=== PATIENT | female | born 1975 | race African-American/Black ===

== ENCOUNTER 2024-01-15 14:56 | Emergency (ER) | payer MEDICAID, OTHER ==
[~2024-01-15] VITALS: Ht 167.6 cm; Wt 166.3 kg
[~2024-01-15 14:56] MED LIST: BENAZEPRIL HCL 20 MG PO
[2024-01-15] MEDS: HYDROcodone-ACET 10/325MG TAB PO ONE (15:52)
[2024-01-15 16:00] VITALS: BP 194/102; PULSE 98; RESP 18; TEMP 98.1; O2SAT 98
[2024-01-15] MEDS ORDERED: BACL10TA PO (16:25)
[2024-01-15] MEDS ORDERED: IBUP-1456 PO (16:25)
== END 2024-01-15 16:29 | disposition home or self-care (01) ==
LOC: ER 14:56
DX: S76.911A Strain of unspecified muscles, fascia and tendons at thigh level, right thigh, initial encounter (principal); E66.01 Morbid (severe) obesity due to excess calories; E11.9 Type 2 diabetes mellitus without complications; Z68.43 Body mass index [BMI] 50.0-59.9, adult; Z79.1 Long term (current) use of non-steroidal anti-inflammatories (NSAID); W01.0XXA Fall on same level from slipping, tripping and stumbling without subsequent striking against object, initial encounter; Y93.89 Activity, other specified; Y92.89 Other specified places as the place of occurrence of the external cause; Y99.8 Other external cause status

== ENCOUNTER 2025-02-04 17:06 | Emergency (ER) | payer MEDICAID ==
[~2025-02-04] VITALS: Ht 167.6 cm; Wt 175.4 kg
[~2025-02-04 17:06] MED LIST changes: +BACL10TA PO; +IBUP-1456 PO
[2025-02-04] MEDS ORDERED: DICL500C76 PO (17:53)
[2025-02-04] MEDS ORDERED: IBUP-1455 PO (17:53)
[2025-02-04] MEDS ORDERED: ACET500T58 PO (17:53)
[2025-02-04] MEDS ORDERED: CLON0.2T PO (17:53)
--- NOTE | 2025-02-04 17:53 | ED.PDOC ---
History of Present Illness HPI Comments This patient is a pleasant but severely morbidly obese 49-year-old female who arrives the ED today for evaluation of right-sided breasts concern. Patient states she feels like she has a lump underneath her right nipple and areolar region. Patient states the symptoms came on several days ago and has been unre lenting. Patient denies any discharge from the nipple. Patient denies any fever nausea or vomiting. Patient was hypertensive on arrival. Patient states she has been nervous lately for multiple concerns. Chief Complaint: Breast pain Time Seen by MD: 17:16 Primary Care Provider: KENAN Reviewed Notes: Nurses Notes Allergies: Coded Allergies: NO KNOWN ALLERGIES (Unverified , 05/31/11) Home Meds Active Scripts Baclofen (Baclofen) 10 Mg Tab, 10 MG PO BID, #24 TAB Prov:FILOMENA DUPREE 01/15/24 Ibuprofen (Ibuprofen) 800 Mg Tab, 1 TAB PO TID, #30 TAB Prov:FILOMENA DUPREE 01/15/24 Reported Medications [benazepril hcl 20mg] No Conflict Check, PO 06/01/11 Information Source: Patient Mode of Arrival: Ambulatory Severity: Moderate Timing: Days Duration: Since onset Prehospital treatment: None Past Medical History PAST MEDICAL HISTORY: Anemia, DM Surgical History: Denies all surgeries DOBIE MAN History: Denies all DOBIE MAN Hx Family History Family History: No family hx of DM, No family hx of Heart milagros, No family hx of HTN Social History Smoker: Non-Smoker Alcohol: Occasionally Drugs: Denies Drug Use Lives In: Home Constitutional: denies: chills, diaphoresis, fatigue, fever, malaise, sweats, weakness, others EENTM: denies: blurred vision, double vision, ear bleeding, ear discharge, ear drainage, ear pain, ear ringing, eye pain, eye redness, hearing loss, mouth pain, mouth swelling, nasal discharge, nose bleeding, nose congestion, nose pain, photophobia, tearing, throat pain, throat swelling, voice changes, others Respiratory: denies: cough, hemoptysis, orthopnea, SOB at rest, shortness of breath, SOB with excertion, stridor, wheezing, others Cardiovascular: denies: chest pain, dizzy spells, diaphoresis, Dyspnea on exertion, edema, irregular heart beat, left arm pain, lightheadedness, palpitations, PND, syncope, others Gastrointestinal: denies: abdomen distended, abdominal pain, blood streaked bowels, constipated, diarrhea, dysphagia, difficulty swallowing, hematemesis, melena, nausea, poor appetite, poor fluid intake, rectal bleeding, rectal pain, vomiting, others Genitourinary: denies: abnormal vagina bleeding, burning, dyspareunia, dysuria, flank pain, frequency, hematuria, incontinence, pain, , vagina discharge, urgency, others Neurological: denies: dizziness, fainting, headache, left sided numbness, left sided weakness, numbness, paresthesia, pre-existing deficit, right sided numbness, right sided weakness, seizure, speech problems, tingling, tremors, weakness, others Musculoskeletal: denies: back pain, gout, joint pain, joint swelling, muscle pain, muscle stiffness, neck pain, others Integumetry: reports: others (Right breast mass); denies: bruises, change in color, change in hair/nails, dryness, laceration, lesions, lumps, rash, wounds Allergic/Immunocompromised: denies: Difficulty Healing, Frequent Infections, Hives, Itching, others Hematologic/Lymphatic: denies: anemia, blood clots, easy bleeding, easy bruising, swollen glands, others Endocrine: denies: excessive hunger, excessive sweating, excessive thirst, excessive urination, flushing, intolerance to cold, intolerance to heat, unexplained weight gain, unexplained weight loss, others Psychiatric: denies: anxiety, bipolar disorder, depression, hopeless, panic disorder, schizophrenia, sleepless, suicidal, others Physical Exam General Appearance: Mild Distress (Moderate distress due to breast pain concerns), Obese HEENT: Normal ENT Inspection, Pharynx Normal, TMs Normal Neck: Full Range of Motion, Non-Tender, Normal, Normal Inspection Respiratory: Chest Non-Tender, Lungs Clear, No Accessory Muscle Use, No Respiratory Distress, Normal Breath Sounds Cardiovascular: No Edema, No JVD, No Murmur, No Gallop, Normal Peripheral Pulses, Regular Rate/Rhythm Breast Exam: Other (Patient has a small grape size lump underneath her nipple and areola. Fluctuant in nature but confirmed. No noted. No erythema or edema. Tender to palpation.) Gastrointestinal: No Organomegaly, Non Tender, No Pulsatile Mass, Normal Bowel Sounds, Soft Genitalia: Deferred Pelvic: Deferred Rectal: Deferred Extremities: Leg edema, Normal inspection Neurologic: Alert Cerebellar Function: NOT DONE Reflexes: NOT DONE Skin: Dry, Normal Color, Warm Lymphatic: No Adenopathy Was a procedure done? Was a procedure done?: No Differential Dx Considerations may include: Breast abscess, mastitis, skin infection X-Ray, Labs, Meds, VS Vital Signs Date Time Temp Pulse Resp B/P (MAP) Pulse Ox O2 Delivery O2 Flow Rate FiO2 02/04/25 17:08 98.2 89 16 173/106 95 98.2 X-Ray, Labs, Meds, VS Comment Spent time discussing the concerns with the patient. Advised that we will treated as an abscess and start antibiotic therapy today. Patient will need to follow up with the primary care provider for continued evaluation and possible mammogram evaluation. Pain medication as needed. Additionally, patient will need to follow up with the primary care provider for discussions related to improved blood pressure management. Time of 1ST Reevaluation: 17:49 Reevaluation 1ST: Improved Consultation: PCP Patient Education/Counseling: Diagnosis, Treatment Family Education/Counseling: Diagnosis, Treatment SEPSIS Sepsis Screen Date sepsis recognized/suspect: Feb 04, 2025 Time Sepsis recognized/suspect: 171 Recent Procedure: No On Antibiotic Therapy: No Respiratory Rate >20: No Heart Rate >90: No Temp<36 C (96.8 F) or >38.3 C: No SBP <90 or MAP <65 mmHG: No New Acute Mental Status Change: No Is the patient on CPAP, BIPAP,: No Physician Orders Clonidine Hcl Tablet (Catapres Tablet) (02/04/25 17:45) Cephalexin Capsule (Keflex Capsule) (02/04/25 17:45) Vital Signs Date Time Temp Pulse Resp B/P (MAP) Pulse Ox O2 Delivery O2 Flow Rate FiO2 02/04/25 17:08 98.2 89 16 173/106 95 98.2 Departure 1 Departure Time of Disposition: 17:50 Impression: Primary Impression: Breast abscess Additional Impression: Hypertensive urgency Disposition: HOME / SELF CARE / HOMELESS Condition: Stable Additional Instructions: Advised patient utilize antibiotics as directed until completion as well as pain medication as needed. Blood pressure medication to be utilize as needed. Patient needs to follow up with the primary care provider for re-evaluation of breast abscess concerns as well as discussions related to improved management of what is currently poorly controlled hypertension. e-Prescriptions Clonidine Hydrochloride (Clonidine Hcl) 0.2 Mg Tab 1 TAB PO Q12HP PRN, #10 TAB 0 Refills To be used if systolic pressure is above 160 or diastolic pressure is above 90. Prov: MACHELLE BUSTILLOS PAC 02/04/25 Acetaminophen (Acetaminophen) 500 Mg Tab 500 MG PO Q4HP PRN, #30 TAB Prov: MACHELLE BUSTILLOS 02/04/25 Ibuprofen Micronized (Ibuprofen) 800 Mg Tab 800 MG PO Q8HP PRN, #20 TAB Prov: MACHELLE BUSTILLOS [facility] 02/04/25 Dicloxacillin Sodium (Dicloxacillin Sodium) 500 Mg Cap 1 CAP PO QID, #28 CAP Prov: MACHELLE BUSTILLOS [facility] 02/04/25 Discharged With: Self, Friend Critical Care Note Critical Care Time?: No Stability Stability form required: No Heart Score Heart Score: Heart Score Response (Comments) Value History N/A 0 EKG N/A 0 Age N/A 0 Risk Factors N/A 0 Troponin N/A 0 Total 0 MACHELLE BUSTILLOS [facility] Feb 04, 2025 17:53
[2025-02-04] MEDS: CEPHALEXIN 250 MG CAP PO ONE (18:07)
[2025-02-04 20:30] VITALS: BP 153/93; PULSE 65; TEMP 98.3; O2SAT 100
[2025-02-04 21:16] VITALS: RESP 16
== END 2025-02-04 21:20 | disposition home or self-care (01) ==
LOC: ER 17:06
DX: N61.1 Abscess of the breast and nipple (principal); I16.0 Hypertensive urgency; E11.9 Type 2 diabetes mellitus without complications; D46.9 Myelodysplastic syndrome, unspecified; Z79.899 Other long term (current) drug therapy